=== PATIENT | female | born 1995 | race Caucasian/White ===

== ENCOUNTER → 2018-07-20 14:10 | Outpatient (CLI) | payer OTHER, SELFPAY ==
[2018-07-20 09:45] VITALS: BMI 19.3
[2018-07-20 16:15] LABS: Chlamydia Trachomatis by PCR Negative (Negative); Neisserai gonorrhoeae by PCR Negative (Negative); Probe Check PASS; Sample Adequacy Control PASS; Specimen Processing Control PASS
[2018-07-25 09:07] LABS: HPV Reflexed? NOT INDICATED
--- OUTSIDE RECORDS SUMMARY | 2018-09-21 14:43 | XMS RPT_ITS ---
:1995 Author Organization OH[facility] Care Team Providers Name Role Phone Carmen Alvares Attending Unavailable Carmen Alvares Attending Unavailable Carmen Alvares Referring Unavailable PROBLEMS PROBLEMS DATE TYPE CONDITION / CODE ATTENDING STATUS SOURCE 07/20/2018 Unknown Z12.4 - Encounter Carmen Alvares Active [facility] for screening for Community malignant neoplasm [facility] cervix / Repository Z12.4(ICD-10) 07/20/2018 Unknown Z11.3 - Encounter Carmen Alvares Active [facility] for screening for Community infections with a [facility] Repository sexual mode of transmission / Z11.3(ICD-10) PROCEDURES PROCEDURES No Procedure Records FoundRESULTS RESULTS CT/NG [facility] BY PCR Collected: 07/20/2018 Status: F Source: [place] 2:32 PM [facility] REPOSITORY TYPE CODE TESTS RESULT OUT OF RANGE REFERENCE UNITS LAB L8200.2100 Negative Normal Chlam Negative Trac PCR LAB L8200.2200 Negative Normal NG by Negative PCR Performed By: #### L8200.2000 #### [facility] [address] [place], [address] FORENSIC EXAMINER OFFICE VISIT Observed: 07/20/2018 Status: F Source: [place] REPORT 10:37 AM [facility] REPOSITORY [facility] 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 Is patient in pain?: No Allergies No Known Allergies Allergy (Verified 07/20/18 09:41) Medications amitriptyline 50 mg tablet 50 mg PO DAILY 07/20/18 [History Confirmed 07/20/18] levonorgestrel 20 mcg/24 hr (5 years) intrauterine device 1 insert INTRAUTERINE ONCE 07/20/18 [History Confirmed 07/20/18] Is last menstrual period known: No Post menopausal: No Patient : No : No PFSH Medical History Migraine (Chronic) ADD (attention deficit disorder) (Acute) Surgical History H/O bilateral breast reduction surgery (Resolved 2013) H/O brain surgery (Resolved 2007) Family History Grandmother Heart disease Lymphoma Social History Smoking Status: Current some day smoker alcohol intake: current details: occasionally substance use type: does not use caffeine: Yes what type of physical activity do you participate in: none seatbelt use: always do you feel safe at home: Yes additional social history: Single-Student at [employer] Pregancy History 0 Elective abortions Hx Para Spontaneous abortions HPI Encounter for routine gynecological examination: Details: RINA GAMEZ is a 22 year old who presents for new patient annual exam.[employer] student, from [employer]. Has had new partner. Denies past STD history. Uses condoms also Last PAP: baseline Rare menses with mirena IUD, inserted 2017. Female Reproductive History Questions: Metorrhagia: No, Sexually active: No, Dyspareunia: No, PCB: No ROS Const Constitutional: Denies fatigue, weight gain or weight loss Cardio Card: Denies chest pain Resp Resp: Denies cough or shortness of breath with activity GI GI: Denies abdominal pain, constipation, change in stools, vomiting or bloating : Reports as per HPI; denies urinary frequency, pelvic pain, urinary urgency, vaginal discharge, vaginal itching, urinary incontinence or difficulty urinating Exam Const General: cooperative, healthy appearing, no acute distress, well developed Orientation: alert, oriented to person, oriented to place [facility] Head: normal to inspection Neck Neck: normal visual inspection Thyroid: thyroid normal Lymphatic: no lymphadenopathy noted Chest Breast inspection: normal inspection of the breasts, normal inspection of the axillae Breast palpation: normal palpation of the breasts, normal palpation of the axillae, no axillary lymphadenopathy Resp Effort AND Inspection: normal respiratory effort GI Palpation: soft, nontender, no masses Rectal Exam: deferred External Female Exam: normal external appearance, normal appearance of the urethra Urethra: normal appearance of the urethra, normal palpation Speculum Exam - Vagina: normal appearance of the vagina, normal vaginal discharge Speculum Exam - Cervix: normal appearance of the cervix (pap, GCC) Bimanual Exam- Vagina AND Uterus: normal bimanual exam, uterine size normal, uterine shape normal, uterus non-tender Bimanual Exam- Adnexa, other: normal adnexae, no adnexal masses, adnexae non-tender, pelvic support normal Pelvic Support: normal Neuro General: alert, oriented x3 Psych Affect: normal affect Assessment AND Plan 1. Encounter for gynecological examination without abnormal finding Z01.419 Plan Completed breast and pelvic exam Reviewed diet and exercise Pap thin prep pap with reflex HPV GCC collected. Declines serum STD screening Reviewed condom use Mammogram scheduled RTO 1 year, prn with problems Carmen Alvares CNP Coding Level of Care Code Off vis,new,prev 18-39yrs Diagnoses Encounter for gynecological examination without abnormal finding Z01.419 Gynecological examination findings: abnormal findings ABSENT 07/20/18 1037 <Electronically signed by Carmen HUTCHINSON> Date Carmen HUTCHINSON Cosigner Signature: Date (if applicable) CC: PAP I-G W/RFX Collected: 07/20/2018 Status: F Source: [place] HRHPV-APTIMA 10:00 AM [facility] REPOSITORY Order Comment: CYTOLOGY INFORMATION: - CLINICAL INFORMATION: - DATE LMP/MENOPAUSE: - COLLECTION VIAL: Thin Prep Vial - SKIVER HAND SOURCE: CERVICAL - COLLECTION TECHNIQUE: BRUSH/SPATULA Specimen Comment: [id number] Specimen Comment: Source.............Cervix Specimen Comment: No. of containers..01 ThinPrep Vial TYPE CODE TESTS RESULT OUT OF RANGE REFERENCE UNITS LAB L7400.0800 . Normal DIAGN Comment Result Comment: NEGATIVE FOR INTRAEPITHELIAL LESION AND MALIGNANCY. THIS SPECIMEN WAS RESCREENED PART OF OUR INFRASTRUCTURE CONSULTANT PROGRAM. LAB L7400.0900 . Normal ADEQ Comment Result Comment: Satisfactory for evaluation. Endocervical and/or squamous metaplastic cells (endocervical component) are present. LAB L7400.1400 . Normal PERFORM Comment Result Comment: Kiersten Huynh, Youth Director (ASCP) LAB L7400.1500 . Normal QC Comment REV Result Comment: Stephani Desai, Youth Director (ASCP) LAB L7400.2575 . Normal TEST METHOD Comment Result Comment: This liquid based ThinPrep(R) pap test was screened with the use of an image guided system. LAB L7400.2600 . Normal . COMM LAB L7400.2700 . Normal PAPSMR Comment Result Comment: The Pap smear is a screening test designed to aid in the detection of premalignant and malignant conditions of the uterine cervix. It is not a diagnostic procedure and should not be used as the sole means of detecting cervical cancer. Both false-positive and false-negative reports do occur. LAB L7400.2800 . Normal HPV RFLX Comment Result Comment: The HPV DNA reflex criteria were not met with this specimen result therefore, no HPV testing was performed. Performed at: [address] [place] [id number] Corpsman: Lexus Virgen MD, Phone: [phone] Performed By: #### L7400.0353 #### [facility] (refer to report for specific site) refer to report for address and phone number ALLERGIES ALLERGIES DATE TYPE / CODE NAME / CODE REACTION SEVERITY SOURCE 07/20/2018 Drug No Known Unknown [facility] Allergy/4160 Allergies/F00 Hospital 11139(SNOMED [id number](RXNOR Repository CT) M) ENCOUNTERS ENCOUNTERS ADMIT/DISCHARGE ACCOUNT ADMITTING ENCOUNTER LOCATION SOURCE NUMBER CLASS 07/20/2018 [id number] [place] [facility] ing:LABSPEC Repository 07/20/2018/ [id number] Ambulatory [facility] [address] [facility] PAYERS PAYERS ENCOUNTER GUARANTOR PAYER SUBSCRIBER SOURCE 07/20/2018 RINA Mcgowan Primary JIE Echols [id number] Insurance:CIGNAPolicy SCHRADERDOB: [facility] DAVID Number: [id number] [place] [place] [address]Ans: Date:[id number], [place] () [address]UA: 07/20/2018 Secondary NOT GIVENUNK [place] Insurance:SELF PAY [facility] Number: Effective Repository Date:2018-07-20 07/20/2018 RINA Mcgowan Primary JIE Echols [id number] Insurance:CIGNAPolicy SCHRADERDOB: [facility] DAVID Number: [id number] [id number], 05Effective Repository [place] [address]Dws: Date:[id number], [place] () [address]FD: 07/20/2018 Secondary NOT GIVENUNK [place] Insurance:SELF PAY [facility] Number: Effective Repository Date:2018-07-11
== END ==
PROVIDERS: Referring Provider Nurse Practitioner Women's Health; Visit Provider Nurse Practitioner Women's Health
DX: Z12.4 Encounter for screening for malignant neoplasm of cervix (principal); Z11.3 Encounter for screening for infections with a predominantly sexual mode of transmission
CPT/HCPCS: 87491; 87591; 87624; 88175; G0145